=== PATIENT | female | born 1985 | race American Indian/Alaskan Native ===

== ENCOUNTER 2019-12-26 15:42 | Emergency (ER) | payer BC, OTHER ==
[~2019-12-26] VITALS: Ht 165.1 cm; Wt 95.2 kg
[~2019-12-26 15:42] MED LIST: BACTRIM DS TAB1 EACH PO; GABAPENTIN600 MG PO; HYDROCODON-ACE1 EA11 PO
[2019-12-26] MEDS ORDERED: HYDROXYZINE HCL25 MG PO (15:58)
[2019-12-26] MEDS ORDERED: HYDROCHLOROTH12.5 M1 PO (15:58)
[2019-12-26] MEDS ORDERED: PREDNISONE10 MG PO (15:59)
== END 2019-12-26 16:23 | disposition home or self-care (01) ==
LOC: ED 15:42
DX: L50.0 Allergic urticaria (principal); F17.200 Nicotine dependence, unspecified, uncomplicated; Z79.899 Other long term (current) drug therapy; Z79.52 Long term (current) use of systemic steroids
CPT/HCPCS: 99283

== ENCOUNTER 2021-07-14 14:54 | Emergency (ER) | payer BC, OTHER ==
[~2021-07-14] VITALS: Ht 165.1 cm; Wt 95.2 kg
[~2021-07-14 14:54] MED LIST changes: +HYDROCHLOROTH12.5 M1 PO; +HYDROXYZINE HCL25 MG PO; +PREDNISONE10 MG PO
[2021-07-14] MEDS ORDERED: STELARA45 MG/0.1 SUB-Q (15:39)
== END 2021-07-14 15:41 | disposition home or self-care (01) ==
LOC: ED 14:54
DX: R22.9 Localized swelling, mass and lump, unspecified (principal); F17.200 Nicotine dependence, unspecified, uncomplicated; Z79.899 Other long term (current) drug therapy
CPT/HCPCS: 99283

== ENCOUNTER 2022-08-14 17:44 | Emergency (ER) | payer BC, OTHER ==
[~2022-08-14] VITALS: Ht 165.1 cm; Wt 110.9 kg
[~2022-08-14 17:44] MED LIST changes: +STELARA45 MG/0.1 SUB-Q
[2022-08-14] MEDS ORDERED: METRONIDAZOLE500 MG PO (22:25)
[2022-08-14] MEDS ORDERED: CIPRO500 MG PO (22:25)
[2022-08-14] MEDS ORDERED: PREDNISONE20 MG PO (22:25)
[2022-08-14] MEDS ORDERED: HYDROCODON-ACE1 EA10 PO (22:25)
[2022-08-14] MEDS ORDERED: ONDANSETRON ODT8 MG PO (22:25)
== END 2022-08-14 22:59 | disposition home or self-care (01) ==
LOC: ED 17:44
DX: K52.9 Noninfective gastroenteritis and colitis, unspecified (principal); F17.200 Nicotine dependence, unspecified, uncomplicated; Z88.0 Allergy status to penicillin
CPT/HCPCS: 36415; 74177; 80053; 81001; 83690; 84703; 85025; 96375; 99284-25; A9270; J2270; J2405; J7030; Q9967

== ENCOUNTER 2023-01-10 06:50 | Day surgery (SDC) | payer BC ==
[~2023-01-10] VITALS: Ht 165.1 cm; Wt 115.9 kg
[~2023-01-10 06:50] MED LIST changes: +CIPRO500 MG PO; +HYDROCODON-ACE1 EA10 PO; +MELATONIN3 MG PO; +METRONIDAZOLE500 MG PO; +ONDANSETRON ODT8 MG PO; +PREDNISONE20 MG PO; +URSODIOL300 MG PO; +ZESTRIL5 MG PO
--- NOTE | 2023-01-10 09:28 | NUR ---
01/10/23 0928 Selvin Lacey 9585 PATIENT ARRIVED FROM THE ENDO ROOM. PATIENT IS ASLEEP AND MAINTAINING HER OWN AIRWAY. PATIENT RESPONDED TO VERBAL STIMULI. DENIES PAIN AND NAUSEA. PATIENT IS PASSING GAS.
--- NOTE | 2023-01-10 10:45 | NUR ---
PT ALERT, ORIENTED AND HERE FOR HER FIRST SCOPE, PT WAITING FOR IV START, ALL QUESTIONS ASKED ANSWERED. GAVE BLELSSING, WILL FOLLOW
--- NOTE | 2023-01-10 15:03 | OR ---
[facility] [address], [place] [address] Signed DATE OF OPERATION: 01/10/2023 SURGEON: Christen Lackey MD PREOPERATIVE DIAGNOSES: 1. Alcohol-related cirrhosis of the liver. 2. Portal hypertension. 3. Primary biliary cholangitis. 4. Unspecified left-sided colitis on CT scan August 2022. POSTOPERATIVE DIAGNOSES: 1. Possible congestion left and sigmoid colon. 2. Minimal internal hemorrhoids. PROCEDURE: Colonoscopy with cold biopsies of the left colon, sigmoid colon and rectum. ESTIMATED BLOOD LOSS: None. INDICATIONS: Fatemeh is a 37-year-old obese female, asked to see me for a colonoscopy. Apparently, she has been working with her conduit installer, Dr. Castle. Dr. Castle had moved from [place], [place] over to [place]. Apparently, Fatemeh has alcohol-related cirrhosis of her liver with portal hypertension. There is mention of primary biliary cholangitis. She ended up in the emergency room in August 2022 at [facility] in [place], [place]. She was having abdominal pain. A CT scan was concerning for colitis in the left and sigmoid colon. She was given Cipro and Flagyl and also prednisone and said she is feeling better. She also described to me a liver biopsy around 2019 at [facility] in [place], [place]. Unfortunately Fatemeh continues to drink alcohol and smoke as well. Apparently, she has been enrolled in outpatient rehab. She gives no family history of inflammatory bowel disease. In the office, I gave Fatemeh a pamphlet on colonoscopy. She told me she has never had upper or lower endoscopy. She understands there is risk including, but not limited to gas bloating, crampy abdominal pain, bleeding, perforation requiring surgery, and missed diagnosis. We also discussed the need for monitored anesthesia care given her daily use of alcohol as well as her body mass index. She had expressed understanding and wished to proceed. PROCEDURE NOTE: Electronically Signed By: CHRISTEN LACKEY MD 01/10/23 1503 PATIENT NAME: FATEMEH DAIGLE OPERATIVE REPORT DATE OF : 83 REPORT #: [id number] PHYSICIAN: CHRISTEN LACKEY MD PCP: [facility] REPORT IS CONFIDENTIAL AND NOT TO BE RELEASED WITHOUT AUTHORIZATION [facility] [address], [place] [address] Signed Fatemeh was taken into our endoscopy suite and placed in the left lateral decubitus position. She was given monitored anesthesia care with propofol infusion per our nurse bi consultant. A digital rectal exam was performed and this was unremarkable. There were no external hemorrhoids. She had very tiny anal skin tags. She had good sphincter tone. There were no masses. The adult colonoscope was introduced and advanced under direct visualization of the camera up into the cecum. It took a few minutes with some extra propofol and abdominal compression to get through her sigmoid colon. Her prep was quite excellent. We could easily see the appendiceal orifice and the ileocecal valve. The scope was then slowly withdrawn. We had taken pictures throughout for photodocumentation. She may have just a little congestion in the left and sigmoid colon. We went ahead and took biopsies in the left colon, sigmoid colon and rectum. Upon retroflexion of the scope, she has very minimal internal hemorrhoid tissue. After this, the gas was suctioned out and the colonoscope removed. Fatemeh tolerated the procedure well. RECOMMENDATIONS: I will see Fatemeh back in my office in 7 to 14 days to review her results. In due time, she needs to re-establish with a conduit installer given her cirrhosis of the liver. Christen Lackey MD ALB/MODL /[id number] cc: [facility] Christen Lackey MD Copies: CHRISTEN LACKEY MD ~ Electronically Signed By: CHRISTEN LACKEY MD 01/10/23 1503 PATIENT NAME: FATEMEH DAIGLE OPERATIVE REPORT DATE OF : 83 REPORT #: [id number] PHYSICIAN: CHRISTEN LACKEY MD PCP: [facility] REPORT IS CONFIDENTIAL AND NOT TO BE RELEASED WITHOUT AUTHORIZATION
--- NOTE | 2023-01-12 12:12 | PATH ---
[facility] [address] [place], [place] [address] Signed SPECIMEN(S): A COLON BIOPSY AT 45 CM SPECIMEN(S): B COLON BIOPSY AT 40 CM SPECIMEN(S): C COLON BIOPSY AT 30 CM SPECIMEN(S): D COLON BIOPSY AT 25 CM SPECIMEN(S): E RECTAL BIOPSY AT 10 CM SPECIMEN SOURCE: A. COLON BIOPSY AT 45 CM B. COLON BIOPSY AT 40 CM C. COLON BIOPSY AT 30 CM D. COLON BIOPSY AT 25 CM E. RECTAL BIOPSY AT 10 CM CLINICAL HISTORY: ? Left sided colitis on CT/internal hemorrhoids. FINAL PATHOLOGIC DIAGNOSIS: A. Colon at 45 cm, biopsies: - Benign colonic mucosa. - Negative for acute inflammation, granulomata, and microscopic colitis. B. Colon at 40 cm, biopsy: - Benign colonic mucosa. - Negative for acute inflammation, granulomata, and microscopic colitis. C. Colon at 30 cm, biopsy: - Benign colonic mucosa. - Negative for acute inflammation, granulomata, and microscopic colitis. D. Colon at 25 cm, biopsy: - Benign colonic mucosa. - Negative for acute inflammation, granulomata, and microscopic colitis. E. Rectum at 10 cm, biopsies: - Benign colonic mucosa. - Negative for acute inflammation, granulomata, and microscopic colitis. COMMENT: Histologic sections of all submitted specimens show very mildly increased lymphoplasmacytic inflammation within the lamina propria. No evidence of ulceration, cryptitis, architectural distortion, or granulomata are identified. Please correlate with clinical impression, especially endoscopic findings. DF:[id number] PATIENT NAME: PK DAIGLE PATHOLOGY DATE OF : 83 REPORT #: [id number] PHYSICIAN: JAIME PARMAR PCP: [facility] REPORT IS CONFIDENTIAL AND NOT TO BE RELEASED WITHOUT AUTHORIZATION [facility] [address] [place], [place] [address] Signed MICROSCOPIC EXAMINATION: Histologic sections of all submitted blocks are examined by light microscopy. These findings, together with the gross examination, support the pathologic diagnosis. GROSS DESCRIPTION: A. The specimen, labeled and designated "Nico, colon biopsy at 45 cm," is received in formalin and consists of one carter soft tissue fragment, 0.3 cm. Entirely submitted in (A1). B. The specimen, labeled and designated "Nico, colon biopsy at 40 cm," is received in formalin and consists of one carter soft tissue fragment, 0.4 cm. Entirely submitted in (B1). C. The specimen, labeled and designated "Nico, colon biopsy at 30 cm," is received in formalin and consists of one carter soft tissue fragment, 0.3 cm. Entirely submitted in (C1). D. The specimen, labeled and designated "Nico, colon biopsy at 25 cm," is received in formalin and consists of one carter soft tissue fragment, 0.4 cm. Entirely submitted in (D1). E. The specimen, labeled and designated "Nico, rectal biopsy at 10 cm," is received in formalin and consists of one carter soft tissue fragment, 0.2 cm. Entirely submitted in (E1). VB (under the direct supervision of a pathologist) The Gross Description was prepared using a voice recognition system. The report was reviewed for accuracy; however, sound-alike word errors, addition and/or deletions may occur. If there is any question about this report, please contact Client Services. PERFORMING LABORATORY: The technical component was performed by [employer], [address] [place] [address] (CLIA# [id number]). Professional interpretation was performed by [employer], [facility], [address] [place] [address] [place] [address] (CLIA#: [id number]) Diagnostician: Selvin Ambrose DO Pathologist Electronically Signed 01/12/2023 PATIENT NAME: PK DAIGLE PATHOLOGY DATE OF : 83 REPORT #: [id number] PHYSICIAN: JAIME PARMAR PCP: [facility] REPORT IS CONFIDENTIAL AND NOT TO BE RELEASED WITHOUT AUTHORIZATION
--- NOTE | 2023-01-12 16:11 | EKG ---
[facility] [address] [facility] [place], [place] [address] Signed Normal sinus rhythm Normal ECG No previous ECGs available Confirmed by GWENDOLYN ACUNA MD ([id number]) on 01/12/2023 4:11:07 PM Electronically Signed By: GWENDOLYN ACUNA MD 01/12/23 1611 PATIENT NAME: EDYTA DAIGLEIno Rangel Electrocardiogram DATE OF : 83 PHYSICIAN: GWENDOLYN ACUNA MD REPORT #: [id number] REPORT IS CONFIDENTIAL AND NOT TO BE RELEASED WITHOUT AUTHORIZATION
== END 2023-01-10 10:03 | disposition home or self-care (01) ==
LOC: OPS 06:50 → DS 06:50 → OPS 08:45
PROVIDERS: ATTEND Colon & Rectal Surgery
PROC: 0DBN8ZX Excision of Sigmoid Colon, Via Natural or Artificial Opening Endoscopic, Diagnostic (ICD-10-PCS; 2023-01-10)
PROC: 0DBP8ZX Excision of Rectum, Via Natural or Artificial Opening Endoscopic, Diagnostic (ICD-10-PCS; 2023-01-10)
PROC: 0DBM8ZX Excision of Descending Colon, Via Natural or Artificial Opening Endoscopic, Diagnostic (ICD-10-PCS; principal; 2023-01-10 08:45)
DX: K64.8 Other hemorrhoids (principal); K74.3 Primary biliary cirrhosis; E66.9 Obesity, unspecified; L40.9 Psoriasis, unspecified; Z68.41 Body mass index [BMI] 40.0-44.9, adult; K76.6 Portal hypertension; K51.50 Left sided colitis without complications
CPT/HCPCS: 00811; 84703; 93005; 93010; J2704; J7121

== ENCOUNTER 2023-01-21 10:38 | Emergency (ER) | payer BC ==
[~2023-01-21] VITALS: Ht 165.1 cm; Wt 115.9 kg
== END 2023-01-21 11:56 | disposition home or self-care (01) ==
LOC: ED 10:38
DX: J20.8 Acute bronchitis due to other specified organisms (principal); B97.89 Other viral agents as the cause of diseases classified elsewhere; F17.200 Nicotine dependence, unspecified, uncomplicated; Z20.822 Contact with and (suspected) exposure to COVID-19; Z88.0 Allergy status to penicillin; Z79.899 Other long term (current) drug therapy
CPT/HCPCS: 87502; 99283; A9270; C9803; U0003